=== PATIENT | female | born 1985 | race African-American/Black ===

== ENCOUNTER 2016-09-04 17:57 | Emergency (ER) | payer OTHER ==
[~2016-09-04] VITALS: Ht 152.4 cm; Wt 61.2 kg
[2016-09-04 18:20] VITALS: BP 117/65
--- NOTE | 2016-09-04 19:16 | PHYS DOC ---
Past Medical History Past Medical History: No Pertinent History Past Surgical History: No Surgical History Additional Information: Nonsmoker Alcohol Use: None Drug Use: None Adult General Chief Complaint Chief Complaint: LOWER BACK PAIN OR INJURY [facility] HPI Patient is a 31 year old female who presents with right-sided low back pain for 2 weeks. She denies any injury to her back. She has had urinary frequency and vaginal discharge as well. She denies any focal weakness or numbness, incontinence, or saddle anesthesia. She has not had nausea, vomiting, abdominal pain, dysuria, or hematuria. Patient is sexually active but uses condoms. She denies concern for STDs. LMP 08/26/16. She does not have a PCP. Review of Systems Review of Systems Constitutional: Denies fever or chills. [] Eyes: Denies change in visual acuity, redness, or eye pain. [] HENT: Denies ear pain, nasal congestion or sore throat. [] Respiratory: Denies cough or shortness of breath. [] Cardiovascular: Denies chest pain, palpitations or edema. [] GI: Denies abdominal pain, nausea, vomiting, bloody stools or diarrhea. [] : Denies dysuria, hematuria. Reports urinary frequency and vaginal discharge. Musculoskeletal: Denies joint pain. Reports right-sided low back pain. Integument: Denies rash or skin lesions. [] Neurologic: Denies headache, focal weakness or sensory changes. Denies incontinence or saddle anesthesia. Endocrine: Denies polyuria or polydipsia. [] Psych: Denies anxiety or depression. [] All systems reviewed and negative unless otherwise stated in the HPI. Allergies Allergies Allergies Coded Allergies Type Severity Reaction Last Updated Verified No Known Drug Allergies 08/15/13 No Physical Exam Physical Exam Constitutional: Well developed, well nourished, no acute distress, non-toxic appearance. [] HENT: Normocephalic, atraumatic, oropharynx moist. [] Eyes: PERRLA, EOMI, conjunctiva normal, no discharge. [] Neck: Normal range of motion, no tenderness, supple, no stridor. [] Cardiovascular: Heart rate regular rhythm, no murmur. [] Lungs & Thorax: Bilateral breath sounds clear to auscultation without wheezes, rales, or rhonchi. [] Abdomen: Bowel sounds normal, soft, no tenderness, no masses, no pulsatile masses. [] Female : Skin: Warm, dry, no erythema, no rash. [] Back: No midline tenderness, right CVA tenderness. [] Extremities: No tenderness, ROM intact, no edema. Distal pulses equal bilaterally. [] Neurologic: Alert and oriented X 3, normal motor function, normal sensory function, no focal deficits noted. [] Psychologic: Affect normal, judgement normal, mood normal. [] Current Patient Data Vital Signs Vital Signs Date Time Temp Pulse Resp B/P Pulse Ox O2 Delivery O2 Flow Rate FiO2 09/04/16 18:20 98.1 76 16 117/65 100 Room Air 98.1 Lab Values Laboratory Tests Test 09/04/16 18:24 09/04/16 19:10 POC Urine HCG, Qualitative Hcg negative (Negative) Urine Color Yellow Urine Clarity Clear Urine pH 6.0 Urine Specific [place] 1.015 Urine Protein Negativemg/dL (NEG-TRACE) Urine Glucose (UA) Negativemg/dL (NEG) Urine Ketones (Stick) Negativemg/dL (NEG) Urine Blood Trace (NEG) Urine Nitrite Negative (NEG) Urine Bilirubin Negative (NEG) Urine Urobilinogen Dipstick 0.2mg/dL (0.2 mg/dL) Urine Leukocyte Esterase Negative (NEG) Urine RBC Occ/HPF (0-2) Urine WBC 1-4/HPF (0-4) Urine Squamous Epithelial Cells Mod/LPF Urine Bacteria 0/HPF (0-FEW) Microbiology 09/04/16 Wet Prep - Final, Complete WET PREP Final YEAST NONE SEEN TRICHOMONAS NONE SEEN CLUE CELLS CLUE CELLS PRESENT WBCS OCCASIONAL SQUAMOUS EPS MODERATE EKG EKG [] Radiology/Procedures Radiology/Procedures [] Course & Med Decision Making Course & Med Decision Making Pertinent Labs and Imaging studies reviewed. (See chart for details) [] Dragon Disclaimer Dragon Disclaimer This electronic medical record was generated, in whole or in part, using a voice recognition dictation system. Departure Departure Impression: Primary Impression: Bacterial vaginosis Disposition: HOME, SELF-CARE Condition: STABLE Referrals: NO PCP (PCP) Patient Instructions: Bacterial Vaginosis, [id number] Additional Instructions: Your urine was negative for infection. He did have bacterial vaginosis. Please complete all the prescribed antibiotics, even if you're feeling better. Please follow-up with a primary care doctor if your symptoms continue. Return to the emergency department if you have any new or concerning symptoms. Scripts Metronidazole (Flagyl)500 Mg Tablet1 Tab PO BID #14 TAB Prov:SUDEEP TAO 09/04/16 SUDEEP TAO Sep 04, 2016 19:16
[2016-09-04 19:30] LABS: BILIRUBIN,URINE NEGATIVE (NEG); GLUCOSE,URINE NEGATIVE (NEG); NITRITE,URINE NEGATIVE (NEG); PROTEIN,URINE NEGATIVE (NEG-TRACE); UROBILINOGEN,URINE 0.2 mg/dL (0.2 mg/dL)
[2016-09-04 19:53] LABS: BACTERIA,URINE 0 /HPF (0-FEW); RBC,URINE OCC /HPF (0-2); SQUAMOUS EPITHELIAL CELL,UR MOD /LPF
[2016-09-04] MEDS ORDERED: METR500T PO (20:41)
== END 2016-09-04 20:52 | disposition home or self-care (01) ==
LOC: ER 17:57
DX: N76.0 Acute vaginitis (principal)
CPT/HCPCS: 81001; 81025; 87491; 87591; 99284; Q0111

== ENCOUNTER → 2018-02-13 | Outpatient (CLI) | payer OTHER ==
[~2018-02-13] MED LIST: METR500T PO
--- NOTE | 2018-02-13 17:39 | RAD ---
Examination: PREG MORE THAN OR EQ TO 14 WKS History: ut size/date discrepancy Comparison/Correlation: None Findings: OB ultrasound exam was performed. Single living intrauterine gestation is present with heart rate of 130 beats per minute. Clinical age of 19 weeks 6 days is reported. EDC of 07/04/2018. Average ultrasound age of 20 weeks 0 days noted with ultrasound EDC of 07/03/2018. Estimated weight is 314 g +/- 40 6 g. Cephalic index is 79.1 which is within normal limits. HC/AC ratio is 1.21 which is within normal limits and at 79th percentile. FL/BPD ratio is 66.9 FL/AC ratio 18.5 which is within normal limits. FL/AC ratio is 22.4. Biparietal diameter of 4.78 cm corresponds to 20 week 3 day gestation and is at the 74th percentile. Head circumference of 17.27 cm corresponding to 19 weeks 6 days gestation and is at the 41st percentile. Abdominal circumference of 14.26 cm corresponds to 19 weeks 4 day gestation and is at the 36th percentile. Femur length of 3.2 cm corresponding to 20 weeks 0 day gestation and is at the 46th percentile. anatomy identified include: Four-chamber heart, three-vessel cord insertion, stomach, kidneys, bladder, spine. position is cephalic lie. movement including cardiac movement identified. Normal quantity of amniotic fluid is present. Grade 1 placenta is present at the anterior fundal aspect. Cervical length of 4 cm noted. Impression: Single living intrauterine gestation with cephalic lie is present. Average ultrasound age is congruent with clinical gestational age. Electronically signed by: Srinath Dumont MD (02/13/2018 5:35 PM) [facility]
== END | disposition home or self-care (01) ==
LOC: US 15:36
PROVIDERS: ATTEND Obstetrics & Gynecology
DX: O26.842 Uterine size-date discrepancy, second trimester (principal); Z3A.20 20 weeks gestation of pregnancy
CPT/HCPCS: 76805

== ENCOUNTER 2019-12-19 14:21 | Emergency (ER) | payer OTHER ==
[~2019-12-19] VITALS: Ht 162.6 cm; Wt 68.0 kg
[~2019-12-19 14:21] MED LIST changes: -CHLO15MO2 SWSP; -NAPR-514 PO; -PENI500T PO
[2019-12-19 15:21] VITALS: BP 113/74
[2019-12-19] MEDS ORDERED: NAPR-514 PO (16:43)
[2019-12-19] MEDS ORDERED: PENI500T PO (16:43)
[2019-12-19] MEDS ORDERED: CHLO15MO2 SWSP (16:43)
--- NOTE | 2019-12-19 16:43 | PHYS DOC ---
Past Medical History Past Medical History: No Pertinent History Past Surgical History: No Surgical History Smoking Status: Never Smoker Alcohol Use: None Drug Use: None General Adult EDM: Chief Complaint: DENTAL PROBLEM HPI: HPI: Patient is a 34 year old AA female who presents to the emergency department wit h complaints of left lower dental pain for the last 2 to 3 days. She denies any fever, cough, sore throat, nausea, vomiting, headache, or dizziness. She currently rates the pain a 10 out of 10 on the pain scale, she denies any relief of the pain from Orajel or Tylenol. Patient states that the pain radiates to her right ear and that it is constant. Review of Systems: Review of Systems: Constitutional: Denies fever or chills. [] Eyes: Denies change in visual acuity. [] HENT: Denies nasal congestion or sore throat; see HPI. [] Respiratory: Denies cough or shortness of breath. [] GI: Denies nausea, vomiting Musculoskeletal: Denies back pain or joint pain. [] Integument: Denies rash; reports lower left facial swelling. [] Neurologic: Denies headache Lymphatic: Denies swollen glands. [] Psychiatric: Denies depression or anxiety. [] Heart Score: Risk Factors: Risk Factors: DM, Current or recent (<one month) smoker, HTN, HLP, family history of CAD, obesity. Risk Scores: Score 0 - 3: 2.5% MACE over next 6 weeks - Discharge Home Score 4 - 6: 20.3% MACE over next 6 weeks - Admit for Clinical Observation Score 7 - 10: 72.7% MACE over next 6 weeks - Early Invasive Strategies Allergies: Allergies: Allergies Coded Allergies Type Severity Reaction Last Updated Verified No Known Drug Allergies 08/15/13 No Physical Exam: PE: Constitutional: Well developed, well nourished, no acute distress, non-toxic appearance. [] HENT: Normocephalic, atraumatic, bilateral external ears normal, nose normal; posterior left lower gingival erythema and swelling with no visible or palpable dental abscess, several missing teeth present. [] Eyes: PERRLA, EOMI, conjunctiva normal, no discharge. [] Neck: Normal range of motion, no stridor. [] Cardiovascular:Heart rate regular rhythm Lungs & Thorax: Respirations even and unlabored, no retractions, no respiratory distress Skin: Warm, dry, no erythema, no rash. [] Extremities: No cyanosis, ROM intact, no edema. [] Neurologic: Alert and oriented X 3, no focal deficits noted. [] Psychologic: Affect normal, judgement normal, mood normal. [] Current Patient Data: Vital Signs: Vital Signs Date Time Temp Pulse Resp B/P (MAP) Pulse Ox O2 Delivery O2 Flow Rate FiO2 12/19/19 15:21 98.0 81 12 113/74 (87) 98 Room Air 98.0 EKG: EKG: [] Radiology/Procedures: Radiology/Procedures: [] Course & Med Decision Making: Course & Med Decision Making Pertinent Labs and Imaging studies reviewed. (See chart for details) [] Dragon Disclaimer: Dragon Disclaimer: This electronic medical record was generated, in whole or in part, using a voice recognition dictation system. Departure Departure Impression: Primary Impression: Dentalgia Additional Impressions: Infected dental carries Gingivitis Disposition: HOME, SELF-CARE Condition: STABLE Referrals: NO PCP (PCP) Patient Instructions: Dental Caries, Dental Pain, [id number], Gingivitis, [id number] Additional Instructions: Fill prescription(s) and use as directed. Follow up with dentist using the referral list provided. Return to the ER if symptoms worsen. Scripts Chlorhexidine Gluconate (PERIDEX) 15 Ml Mouthwash 15 ML SWSP BID for 10 Days, #1 BOT 0 Refills [place] your teeth before use of this medication and rinse thoroughly after using the medication as it may stain your teeth. Prov: KAMALA DICKERSON APRN 12/19/19 Naproxen (NAPROXEN) 500 Mg Tablet 1 TAB PO BID PRN for PAIN for 10 Days, #20 TAB 0 Refills Prov: KAMALA DICKERSON APRN 12/19/19 Penicillin V Potassium (PENICILLIN V POTASSIUM) 500 Mg Tablet 1 TAB PO QID for 10 Days, #40 TAB 0 Refills Prov: KAMALA DICKERSON APRN 12/19/19 Justicifation of Admission Dx: Justifications for Admission: Justification of Admission Dx: N/A KAMALA DICKERSON APRN Dec 19, 2019 16:43
== END 2019-12-19 16:58 | disposition home or self-care (01) ==
LOC: ER 14:21
DX: K05.10 Chronic gingivitis, plaque induced (principal); K04.7 Periapical abscess without sinus; H92.01 Otalgia, right ear
CPT/HCPCS: 99283

== ENCOUNTER → 2019-12-19 | Emergency (ER) | payer OTHER ==
[~2019-12-19] MED LIST changes: +CHLO15MO2 SWSP; +NAPR-514 PO; +PENI500T PO
== END | disposition left against medical advice (07) ==
LOC: ER 13:27
DX: K08.89 Other specified disorders of teeth and supporting structures (principal); Z53.21 Procedure and treatment not carried out due to patient leaving prior to being seen by health care provider